=== PATIENT | female | born 1975 | race Caucasian/White ===

== ENCOUNTER 2018-09-29 11:12 | Emergency (ER) | payer BC ==
[2018-09-29] MEDS ORDERED: MORPHINE SULFATE 10 MG/ML INJ IV ONE (12:52)
[2018-09-29] MEDS ORDERED: NORMAL SALINE 1000 ML 1,000 ML IV ONE ×2 (12:52→19:44)
--- NOTE | 2018-09-29 12:53 | ER Document Report ---
ED Medical Screen (RME) - General Chief Complaint: Numbness of Arm Stated Complaint: SORE THROAT Time Seen by Provider: 09/29/18 12:48 TRAVEL OUTSIDE OF THE [place] IN LAST 30 DAYS: No - HPI Notes: 09/29/18 12:52 Patient is a 42-year-old female that presents to the emergency department for chief complaint of facial swelling and difficulty swallowing. Patient had dental abscess surgery performed by oral surgeon yesterday. Last night she started to have increased swelling in her face and states around 2 AM she started to have a hard time swallowing. She feels her throat is swollen. She denies fevers. ROS: GENERAL: Denies fever of chills CV: Denies chest pain PHYSICAL EXAMINATION: GENERAL: Well-appearing, well-nourished and in no acute distress. HEAD: Atraumatic, normocephalic. EYES: Pupils equal round extraocular movements intact, conjunctiva are normal. ENT: Nares patent NECK: Normal range of motion LUNGS: No respiratory distress Musculoskeletal: Normal range of motion NEUROLOGICAL: Normal speech, normal gait. PSYCH: Normal mood, normal affect. MDM: Patient seen and examined for rapid initial assessment. Vital signs reviewed. A comprehensive ED assessment and evaluation of the patient, analysis of test results and completion of the medical decision making process will be conducted by additional ED providers. - Related Data Allergies/Adverse Reactions: morphine [Morphine] Allergy (Verified 09/29/18 12:44) Past Medical History - Social History Chew tobacco use (# tins/day): No Frequency of alcohol use: None Drug Abuse: None - Past Medical History Cardiac Medical History: Denies: Hx Coronary Artery Disease, Hx Pulmonary Embolism Pulmonary Medical History: Reports: Hx Bronchitis, Hx Pneumonia Neurological Medical History: Reports: Hx Migraine Renal/ Medical History: Denies: Hx Peritoneal Dialysis Psychiatric Medical History: Reports: Hx Anxiety, Hx Depression - anxiety Past Surgical History: Reports: Hx Appendectomy, Hx Cholecystectomy, Hx Hysterectomy, Hx Tubal Ligation - Immunizations Immunizations up to date: Yes Hx Diphtheria, Pertussis, Tetanus Vaccination: Yes Physical Exam - Vital signs Vitals: Temp Pulse Resp BP Pulse Ox 98.2 F 88 16 127/81 H 97 09/29/18 11:25 09/29/18 11:25 09/29/18 11:25 09/29/18 11:25 09/29/18 11:25 Course - Vital Signs Vital signs: Temp Pulse Resp BP Pulse Ox 98.2 F 88 16 127/81 H 97 09/29/18 11:25 09/29/18 11:25 09/29/18 11:25 09/29/18 11:25 09/29/18 11:25
[2018-09-29 13:30] LABS: ABSOLUTE EOSINOPHILS # (AUTO) 0.1 10^3/uL (0.0-0.6); ABSOLUTE LYMPHOCYTES (AUTO) 1.2 10^3/uL (0.5-4.7); ABSOLUTE MONOCYTES (AUTO) 0.4 10^3/uL (0.1-1.4); ABSOLUTE NEUT (AUTO) 5.5 10^3/uL (1.7-8.2); BASOPHILS % (AUTO) 0.6 % (0-2); EOSINOPHILS % (AUTO) 1.7 % (0-6); HEMATOCRIT 40.7 % (36.0-47.0); HEMOGLOBIN 13.6 g/dL (12.0-15.5); LYMPHOCYTES % (AUTO) 17.1 % (13-45); MEAN CORPUSCULAR HEMOGLOBIN 29.6 pg (27.0-33.4); MEAN CORPUSCULAR HGB CONC 33.4 g/dL (32.0-36.0); MEAN CORPUSCULAR VOLUME 88 fl (80-97); PLATELET COUNT 275 10^3/uL (150-450); RED CELL DISTRIBUTION WIDTH 13.6 % (11.5-14.0); SEGMENTED NEUTROPHILS % (AUTO) 75.6 % (42-78); TOTAL CELLS COUNTED % (AUTO) 100 %; WHITE BLOOD COUNT 7.2 10^3/uL (4.0-10.5)
[2018-09-29] MEDS ORDERED: KETOROLAC TROMETHAMINE INJ/PF 30 MG/1 ML SDV IV ONE (13:31)
[2018-09-29 13:41] LABS: ANION GAP 7 (5-19); BLOOD UREA NITROGEN 9 mg/dL (7-20); CALCIUM 9.6 mg/dL (8.4-10.2); CARBON DIOXIDE 27 mmol/L (22-30); CHLORIDE 104 mmol/L (98-107); GLUCOSE 104 mg/dL (75-110); POTASSIUM 4.5 mmol/L (3.6-5.0); SODIUM 138.4 mmol/L (137-145)
--- NOTE | 2018-09-29 15:03 | ER Document Report ---
ED General - General Chief Complaint: Numbness of Arm Stated Complaint: SORE THROAT Time Seen by Provider: 09/29/18 12:48 Notes: Patient is a 42-year-old female that presents to the emergency department for chief complaint of facial swelling and dental pain. Patient states she had a tooth extraction yesterday of tooth #21, and was told that it was infected, she was started on oral clindamycin. Around 230 this morning, she experienced more pain, noticed that her face was swelling that got progressively worse over the course of today so she decided to come to the emergency department. She describes her pain as a 7 out of 10 describes as a throbbing and constant pain underneath her jaw on the left side she feels that her throat is swelling up as well. She has been taking Vicodin for the pain, and has been taking the clindamycin as prescribed. She denies any difficulty breathing, but feels that her throat is tight, and has pain underneath her chin as well. She denies noting fevers, chills, night sweats, chest pain, nausea, vomiting or abdominal pain. Past Medical History: Denies chronic medical conditions Past Surgical History: Tubal ligation, appendectomy Social History: Admits to smoking cigarettes, denies alcohol or drug use. Family History: Reviewed and noncontributory for presenting illness Allergies: Reviewed, see documented allergy list. REVIEW OF SYSTEMS: Other than noted above, the 12 point review of systems was reviewed with the patient and were negative, all pertinent findings are included in the HPI. PHYSICAL EXAMINATION: Vital signs reviewed, nursing noted reviewed. GENERAL: Patient appears uncomfortable. HEAD: Atraumatic, normocephalic. EYES: Eyes appear normal, extraocular movements intact, sclera anicteric, conjunctiva are normal. ENT: nares patent, oropharynx clear without exudates. Moist mucous membranes. Samy Dang score 3, tenderness along the submental space, and left subman dibular space, there is prominence and erythema noted in these areas as well. Patient does have poor dentition, noted is the site of her recent dental extraction, no appreciable abscess noted. NECK: Normal range of motion, supple without lymphadenopathy, no stridor LUNGS: Breath sounds clear to auscultation bilaterally and equal. No wheezes rales or rhonchi. HEART: Regular rate and rhythm without murmurs ABDOMEN: Soft, nontender, normoactive bowel sounds. No rebound, guarding, or rigidity. No masses appreciated. EXTREMITIES: Nontender, good range of motion, no pitting or edema. NEUROLOGICAL: No focal neurological deficits. Moves all extremities spontaneously Motor and sensory grossly intact on exam. PSYCH: Normal mood, normal affect. SKIN: Warm, Dry, normal turgor, no rashes or lesions noted on exposed skin TRAVEL OUTSIDE OF THE [place] IN LAST 30 DAYS: No - Related Data Allergies/Adverse Reactions: morphine [Morphine] Allergy (Verified 09/29/18 12:44) Past Medical History - Social History Smoking Status: Current Every Day Smoker Chew tobacco use (# tins/day): No Frequency of alcohol use: None Drug Abuse: None Family History: Reviewed & Not Pertinent Patient has suicidal ideation: No Patient has homicidal ideation: No - Past Medical History Cardiac Medical History: Denies: Hx Coronary Artery Disease, Hx Pulmonary Embolism Pulmonary Medical History: Reports: Hx Bronchitis, Hx Pneumonia Neurological Medical History: Reports: Hx Migraine Renal/ Medical History: Denies: Hx Peritoneal Dialysis Psychiatric Medical History: Reports: Hx Anxiety, Hx Depression - anxiety Past Surgical History: Reports: Hx Appendectomy, Hx Cholecystectomy, Hx Hysterectomy, Hx Tubal Ligation - Immunizations Immunizations up to date: Yes Hx Diphtheria, Pertussis, Tetanus Vaccination: Yes Physical Exam - Vital signs Vitals: Temp Pulse Resp BP Pulse Ox 98.2 F 88 16 127/81 H 97 09/29/18 11:25 09/29/18 11:25 09/29/18 11:25 09/29/18 11:25 09/29/18 11:25 Course - Re-evaluation Re-evalutation: Patient seen and examined vital signs reviewed. Laboratory data and imaging were ordered as appropriate for the patient's presenting symptoms and complaint, with consideration of any critical or life threatening conditions that may be associated with their obtained history and exam as noted above. Patient was treated with IV fluid, IV Toradol was initially given, and started on IV clindamycin 900 mg, and IV Dilaudid was given for pain. 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 I eventually spoke with [facility], after multiple calls, delays to getting a hold of an attending that would accept the patient, eventually talked with Dr. Robert in the emergency department who did accept the patient is in the ED to ED transfer. Results were discussed with the patient at this point after careful consideration I feel that that patient should be transferred to [facility] due to Gomez's angina. This was discussed with the patient that it is in the best interest for their care to be transferred, the risks and benefits of transfer were discussed, including but not limited to clinical deterioration during transport, respiratory distress, and potential for traumatic injuries. Patient agreed with this plan of care. *Note is created using voice recognition software and may contain spelling, syntax or grammatical errors. Laboratory 09/29/18 09/29/18 09/29/18 13:06 13:06 13:06 WBC 7.2 RBC 4.60 Hgb 13.6 Hct 40.7 MCV 88 MCH 29.6 MCHC 33.4 RDW 13.6 Plt Count 275 Seg Neutrophils % 75.6 Lymphocytes % 17.1 Monocytes % 5.0 Eosinophils % 1.7 Basophils % 0.6 Absolute Neutrophils 5.5 Absolute Lymphocytes 1.2 Absolute Monocytes 0.4 Absolute Eosinophils 0.1 Absolute Basophils 0.0 Sodium 138.4 Potassium 4.5 Chloride 104 Carbon Dioxide 27 Anion Gap 7 BUN 9 Creatinine 0.54 Est GFR ( Amer) > 60 Est GFR (Non-Af Amer) > 60 Glucose 104 Lactic Acid 1.0 Calcium 9.[address] 09/29/18 12:52 IMPRESSION: Mild inflammatory changes in the tongue base. No evidence of abscess or airway obstruction. 09/29/18 20:23 - Vital Signs Vital signs: Temp Pulse Resp BP Pulse Ox 98.2 F 88 16 127/81 H 97 09/29/18 11:25 09/29/18 11:25 09/29/18 11:25 09/29/18 11:25 09/29/18 11:25 - Laboratory Result Diagrams: 09/29/18 13:06 09/29/18 13:06 Critical Care Note - Critical Care Note Total time excluding time spent on procedures (mins): 75 Comments: Critical care time 75 minutes exclusive from separate billable procedures for a patient requiring complex medical decision making, and high potential for clinical deterioration. In a patient with pelvic management requiring multiple and frequent repeat exams, for clinical deterioration, and multiple phone calls to facilitate transfer for this patient. Time spent obtaining history from patient or surrogate, discussions with consultants, development of treatment plan with patient or surrogate, evaluation of patient's response to treatment, examination of patient, ordering and performing treatments and interventions, ordering and review of laboratory studies, re-evaluation of patient's condition, ordering and review of radiographic studies and review of old charts Discharge - Discharge Clinical Impression: Ludwigs angina Condition: Stable Disposition: [place]
--- NOTE | 2018-09-29 15:09 | RADIOLOGY REPORT (SQ) ---
EXAM DESCRIPTION: CT SOFT TISSUE NECK WITH COMPLETED DATE/TIME: 09/29/2018 2:44 pm REASON FOR STUDY: ludwigs angina, dental infection COMPARISON: None. TECHNIQUE: Post IV contrasted scanning from skull base through lung apices with review of bone, soft tissue and lung windows. Reconstructed coronal and sagittal MPR images reviewed. All images stored on PACS. All CT scanners at this facility use dose modulation, iterative reconstruction, and/or weight based d osing when appropriate to reduce radiation dose to as low as reasonably achievable (ALARA). [facility]: Dose Right [facility]: CareDose [facility]: Dose Right [facility]: Teradose 4D [facility]: [employer] CONTRAST TYPE AND DOSE: contrast/concentration: Isovue 350.00 mg/ml; Total Contrast Delivered: 75.0 ml; Total Saline Delivered: 55.0 ml RENAL FUNCTION: GFR > 60. RADIATION DOSE: CT Rad equipment meets quality standard of care and radiation dose reduction techniq ues were employed. CTDIvol: 16.7 mGy. DLP: 469 mGy-cm. . LIMITATIONS: None. FINDINGS: SKULL BASE: Intact. MAJOR SALIVARY GLANDS: No solid or cystic masses. No inflammatory changes. LYMPHADENOPATHY: No adenopathy. MUCOSAL MASSES OR ASYMMETRY: Mild edema in the tongue base. No organized fluid collection. Secretio ns in the vallecula. No mucosal masses or asymmetry. LARYNX/CORDS: No abnormal findings. VASCULAR STRUCTURES: The major vessels are patent. LUNG APICES: Clear. BONES: Intact. THYROID: Normal size. No masses. PARANASAL SINUSES: No fluid levels. OTHER: No other significant finding. IMPRESSION: Mild inflammatory changes in the tongue base. No evidence of abscess or airway obstruct ion. TECHNICAL DOCUMENTATION: JOB ID: [id number] Quality ID # [id number]: Final reports with documentation of one or more dose reduction techniques (e.g., Au tomated exposure control, adjustment of the mA and/or kV according to patient size, use of iterative reconstruction technique) 2010 [employer]- All Rights Reserved Reading location - IP/workstation name: [email or web address]
[2018-09-29] MEDS ORDERED: DEXAMETHASONE SOD PHOS INJ 10 MG/1 ML VIAL IV ONE (15:17)
[2018-09-29] MEDS ORDERED: HYDROMORPHONE HCL INJ/PF 2 MG/ML AMPULE IV ONE ×3 (15:17→20:15)
[2018-09-29] MEDS ORDERED: CLINDAMYCIN 900 MG/D5W RTU 900 MG/50 ML RTUPB IV ONE (15:18)
[2018-09-29] MEDS ORDERED: DEXAMETHASONE SOD PHOSPHATE INJ 4 MG/1 ML VIAL IV ONE (20:22)
[2018-09-29 20:58] VITALS: BP 119/75
== END 2018-09-29 21:30 | disposition short-term general hospital (02) ==
LOC: ER 11:12
DX: K12.2 Cellulitis and abscess of mouth (principal); R20.0 Anesthesia of skin; J02.9 Acute pharyngitis, unspecified; R22.0 Localized swelling, mass and lump, head; K08.89 Other specified disorders of teeth and supporting structures; Z79.899 Other long term (current) drug therapy; F17.210 Nicotine dependence, cigarettes, uncomplicated
CPT/HCPCS: 96376; 99291; 99292; 96361; 96375; 96365; 36415; 87040; 85025; 80048; 83605; 70491; J1100 ×2; J1885; J1170; J7030

== ENCOUNTER 2018-11-04 21:19 | Emergency (ER) | payer BC ==
[2018-11-04] MEDS ORDERED: KETOROLAC TROMETHAMINE 60 MG/2 ML SDV IM ONE (22:47)
--- NOTE | 2018-11-04 23:29 | ER Document Report ---
ED General - General Chief Complaint: Arm Pain Stated Complaint: LEFT ARM PAIN,NUMBNESS/TINGLING Time Seen by Provider: 11/04/18 22:18 TRAVEL OUTSIDE OF THE [place] IN LAST 30 DAYS: No - HPI Notes: Patient is a 42-year-old female who presents emergency department for evaluation of pain in her left arm. She states is been there for several months. She points to an area surrounding her elbow. It is worsened by movement. Nothing seems to make it better. She states that over the last 2 weeks she has noticed numbness and. She denies any neck pain. She denies any other focal numbness or tingling. She has not tried anything to feel better. She is not seen a physician as she does not have one. No visual changes. Speaking and swallowing without difficulty. She states she uses her arms a lot at work. - Related Data Allergies/Adverse Reactions: morphine [Morphine] Allergy (Verified 11/04/18 21:30) Past Medical History - General Information source: Patient - Social History Smoking Status: Current Every Day Smoker Family History: Reviewed & Not Pertinent, Malignancy - Lung cancer Patient has suicidal ideation: No Patient has homicidal ideation: No - Past Medical History Cardiac Medical History: Denies: Hx Coronary Artery Disease, Hx Pulmonary Embolism Pulmonary Medical History: Reports: Hx Bronchitis, Hx Pneumonia Neurological Medical History: Reports: Hx Migraine Renal/ Medical History: Denies: Hx Peritoneal Dialysis Psychiatric Medical History: Reports: Hx Anxiety, Hx Depression - anxiety Past Surgical History: Reports: Hx Appendectomy, Hx Cholecystectomy, Hx Hysterectomy, Hx Tubal Ligation - Immunizations Immunizations up to date: Yes Hx Diphtheria, Pertussis, Tetanus Vaccination: Yes Review of Systems - Review of Systems Constitutional: No symptoms reported EENT: No symptoms reported Cardiovascular: No symptoms reported Respiratory: No symptoms reported Gastrointestinal: No symptoms reported Genitourinary: No symptoms reported Musculoskeletal: See HPI Skin: No symptoms reported Neurological/Psychological: See HPI Physical Exam - Vital signs Vitals: Temp Pulse Resp BP Pulse Ox 98.8 F 91 18 135/86 H 97 11/04/18 21:32 11/04/18 21:32 11/04/18 21:32 11/04/18 21:32 11/04/18 21:32 - Notes Notes: Vital signs reviewed, please refer to chart. Patient is normocephalic, atraumatic. Pupils equal round, reactive to light. Neck is supple without meningismus. Heart is regular rate and rhythm. Lungs are clear to auscultation bilaterally. Abdomen is soft, nontender, normoactive bowel sounds throughout. Extremities without cyanosis, clubbing, edema. Peripheral pulses are equal. Skin is warm and dry. Patient is awake, alert, neurological exam is nonfocal. Examination of the left upper extremity yields no obvious deformity. She is tender to palpation over the distal bicep, no other musculature about the left elbow, but none of the bony landmarks. Full range of motion. Intact sensation to the entire left upper extremity. Biceps and brachioradialis reflexes are 2+. Strength is plus 5 out of 5 at the shoulder, elbow, wrist, fingers, thumb. Radial pulses 2+, capillary refill is brisk. Course - Re-evaluation Re-evalutation: 11/04/18 23:27 Patient presents emergency department for evaluation of pain in her left arm. It has been present for several months. She describes a tingling sensation going along with it. She has no other neurological deficits. She has no chest pain, no difficulty breathing. This pain is not exertional. I strongly suspect a musculoskeletal etiology of this pain. She is treated with anti- inflammatories, will send her home with a prescription for the same. She is to return the emergency department with worsening or new concerning symptoms of any sort. - Vital Signs Vital signs: Temp Pulse Resp BP Pulse Ox 98.8 F 91 18 135/86 H 97 11/04/18 21:32 11/04/18 21:32 11/04/18 21:32 11/04/18 21:32 11/04/18 21:32 Discharge - Discharge Clinical Impression: Pain in left elbow Condition: Stable Disposition: HOME, SELF-CARE Additional Instructions: Myofascial Pain Myofascial pain syndrome is chronic or recurring muscle pain. The pain can be aching, cramping, or burning. Sometimes tingling and numbness accompanies the pain. It most often affects the neck, upper back, and shoulders. Pain may radiate into the arms and hands. The pain has no clear-cut explanation. It may begin with an injury, but we don't know why the pain continues. Myofascial pain syndrome may become worse with stress, anxiety, or emotional upset, or after over-use of the muscles. The symptoms will usually go away with time, but sometimes this takes weeks or months. Rest the area when there is a flair of pain. Either cold packs or heat can reduce spasm and pain. Antiinflammatory medication such as ibuprofen can help reduce pain and inflammation. Keep your body in good physical condition by ge tting enough exercise. Stretching exercises of the involved muscles can help. Call the doctor or return if pain becomes severe, or if you develop new symptoms. Anti-Inflammatory Medication You have received a prescription for an antiinflammatory agent. This is an excellent, safe drug for pain control. In addition, it has potent antiinflammatory effects which are beneficial, especially in the treatment of injuries, arthritis, or tendonitis. It's best to take this medicine with food. Persons with ulcer disease or allergy to aspirin should notify their physician of this before taking this drug. Take the medication exactly as prescribed. Don't take additional doses unless instructed to do so by your doctor. If you develop wheezing, shortness o f breath, hives, faintness, stomach pain, vomiting, or dark black stools, return for re-evaluation at once. Prescriptions: Naproxen [Naprosyn 375 Mg Tablet] 375 mg PO BID #20 tablet
[2018-11-04 23:59] VITALS: BP 129/78
--- NOTE | 2018-11-05 20:49 | EKG REPORT ---
SEVERITY:- NORMAL ECG - SINUS RHYTHM : Confirmed by: Malia Rowan MD 05-Nov-2018 20:47:58
== END 2018-11-04 23:40 | disposition home or self-care (01) ==
LOC: ER 21:19
DX: M25.522 Pain in left elbow (principal); R20.0 Anesthesia of skin; R20.2 Paresthesia of skin; Z88.5 Allergy status to narcotic agent; F17.200 Nicotine dependence, unspecified, uncomplicated
CPT/HCPCS: 93005; 99283; 96372; 93010; J1885

== ENCOUNTER 2019-02-02 00:31 | Emergency (ER) | payer BC ==
--- NOTE | 2019-02-02 03:36 | ER Document Report ---
ED Medical Screen (RME) - General Chief Complaint: Sore Throat Stated Complaint: SORE THROAT Time Seen by Provider: 02/02/19 03:29 Notes: Patient is a 43-year-old female who presents to the emergency department with a chief complaint of sore throat, vomiting, coughing, and a migraine. She states that she has had her sore throat for the past week. Patient states that she felt feverish. She states that whenever she tries to eat or drink anything and ends up coming back up. She has been having her cough for 4 days. Exam: S1-S2, erythematous oropharynx I have greeted and performed a rapid initial assessment of this patient. A comprehensive ED assessment and evaluation of the patient, analysis of test results and completion of medical decision making process will be conducted by an additional ED providers. TRAVEL OUTSIDE OF THE [place] IN LAST 30 DAYS: No - Related Data Allergies/Adverse Reactions: morphine [Morphine] Allergy (Verified 11/04/18 21:30) Past Medical History - Past Medical History Cardiac Medical History: Denies: Hx Coronary Artery Disease, Hx Pulmonary Embolism Pulmonary Medical History: Reports: Hx Bronchitis, Hx Pneumonia Neurological Medical History: Reports: Hx Migraine Renal/ Medical History: Denies: Hx Peritoneal Dialysis Psychiatric Medical History: Reports: Hx Anxiety, Hx Depression - anxiety Past Surgical History: Reports: Hx Appendectomy, Hx Cholecystectomy, Hx Hysterectomy, Hx Tubal Ligation - Immunizations Immunizations up to date: Yes Hx Diphtheria, Pertussis, Tetanus Vaccination: Yes Physical Exam - Vital signs Vitals: Temp Pulse Resp BP Pulse Ox 97.7 F 86 24 H 150/84 H 97 02/02/19 00:42 02/02/19 00:42 02/02/19 00:42 02/02/19 00:42 02/02/19 00:42 Course - Vital Signs Vital signs: Temp Pulse Resp BP Pulse Ox 97.7 F 86 24 H 150/84 H 97 02/02/19 00:42 02/02/19 00:42 02/02/19 00:42 02/02/19 00:42 02/02/19 00:42
--- NOTE | 2019-02-02 05:24 | RADIOLOGY REPORT (SQ) ---
EXAM DESCRIPTION: XR CHEST 1 VIEW COMPLETED DATE/TME: 02/02/2019 03:34 CLINICAL HISTORY: 43 years, Female, cough COMPARISON: 08/27/2012 NUMBER OF VIEWS: One TECHNIQUE: AP view of the chest LIMITATIONS: None. FINDINGS: The lungs are clear. The heart is normal in size. There is no pneumothorax or pleural effusion. There is no acute fracture. IMPRESSION: No acute cardiopulmonary abnormality. copyright 2010 [employer]- All Rights Reserved
[2019-02-02] MEDS ORDERED: ONDANSETRON 4 MG TAB.RAPDIS PO ONE (05:37)
[2019-02-02] MEDS ORDERED: BENZONATATE 100 MG CAPSULE PO ONE (05:39)
[2019-02-02 05:42] LABS: ABSOLUTE BASOPHILS # (AUTO) 0.1 10^3/uL (0.0-0.2); ABSOLUTE EOSINOPHILS # (AUTO) 0.3 10^3/uL (0.0-0.6); ABSOLUTE LYMPHOCYTES (AUTO) 2.1 10^3/uL (0.5-4.7); ABSOLUTE MONOCYTES (AUTO) 0.6 10^3/uL (0.1-1.4); ABSOLUTE NEUT (AUTO) 4.7 10^3/uL (1.7-8.2); BASOPHILS % (AUTO) 0.8 % (0-2); EOSINOPHILS % (AUTO) 3.8 % (0-6); HEMATOCRIT 39.4 % (36.0-47.0); HEMOGLOBIN 13.2 g/dL (12.0-15.5); LYMPHOCYTES % (AUTO) 27.5 % (13-45); MEAN CORPUSCULAR HGB CONC 33.4 g/dL (32.0-36.0); MEAN CORPUSCULAR VOLUME 87 fl (80-97); MONOCYTES % (AUTO) 7.4 % (3-13); PLATELET COUNT 293 10^3/uL (150-450); RED BLOOD COUNT 4.54 10^6/uL (3.72-5.28); RED CELL DISTRIBUTION WIDTH 13.3 % (11.5-14.0); SEGMENTED NEUTROPHILS % (AUTO) 60.5 % (42-78); TOTAL CELLS COUNTED % (AUTO) 100 %; WHITE BLOOD COUNT 7.8 10^3/uL (4.0-10.5)
[2019-02-02] MEDS ORDERED: ACETAMINOPHEN 325 MG TABLET PO ONE (05:48)
[2019-02-02 06:22] LABS: ALANINE AMINOTRANSFERASE 27 U/L (9-52); ALBUMIN 3.9 g/dL (3.5-5.0); ALKALINE PHOSPHATASE 87 U/L (38-126); ANION GAP 8 (5-19); ASPARTATE AMINO TRANSFERASE 16 U/L (14-36); BILIRUBIN,DIRECT 0.2 mg/dL (0.0-0.4); BILIRUBIN,TOTAL 0.2 mg/dL (0.2-1.3); BLOOD UREA NITROGEN 13 mg/dL (7-20); CARBON DIOXIDE 25 mmol/L (22-30); CHLORIDE 105 mmol/L (98-107); GLUCOSE 100 mg/dL (75-110); POTASSIUM 4.3 mmol/L (3.6-5.0); SODIUM 138.3 mmol/L (137-145); TOTAL PROTEIN 6.8 g/dL (6.3-8.2)
--- NOTE | 2019-02-02 06:56 | ER Document Report ---
ED General - General Chief Complaint: Sore Throat Stated Complaint: SORE THROAT Time Seen by Provider: 02/02/19 03:29 Primary Care Provider: NEREIDA SALGADO FNP [NURSE PRACTITIONER] - Follow up in 1 week Notes: Patient is a 43-year-old female who presents to the emergency department with a chief complaint of sore throat, vomiting, coughing, and a migraine. She states that she has had her sore throat for the past week. Patient states that she felt feverish. She states that whenever she tries to eat or drink anything and ends up coming back up. She has been having her cough for 4 days. TRAVEL OUTSIDE OF THE [place] IN LAST 30 DAYS: No - Related Data Allergies/Adverse Reactions: morphine [Morphine] Allergy (Verified 11/04/18 21:30) Past Medical History - General Information source: Patient - Social History Smoking Status: Unknown if Ever Smoked Family History: Reviewed & Not Pertinent, Malignancy - Lung cancer - Past Medical History Cardiac Medical History: Denies: Hx Coronary Artery Disease, Hx Pulmonary Embolism Pulmonary Medical History: Reports: Hx Bronchitis, Hx Pneumonia Neurological Medical History: Reports: Hx Migraine Renal/ Medical History: Denies: Hx Peritoneal Dialysis Psychiatric Medical History: Reports: Hx Anxiety, Hx Depression - anxiety Past Surgical History: Reports: Hx Appendectomy, Hx Cholecystectomy, Hx H ysterectomy, Hx Tubal Ligation - Immunizations Immunizations up to date: Yes Hx Diphtheria, Pertussis, Tetanus Vaccination: Yes Review of Systems - Review of Systems Notes: REVIEW OF SYSTEMS: CONSTITUTIONAL : Denies recent illness. Denies recent unintentional weight loss. Denies fever, chills, or sweats. EENT: See HPI CARDIOVASCULAR: Denies chest pain. RESPIRATORY: See HPI GASTROINTESTINAL: Denies nausea, vomiting, and diarrhea. Denies abdominal pain. Denies constipation. GENITOURINARY: Denies difficulty urinating, burning, blood in urine, urgency or frequency. MUSCULOSKELETAL: Denies neck and back pain. Denies joint pain or swelling. SKIN: Denies rash, itchiness, or lesions HEMATOLOGIC : Denies easy bruising or bleeding. LYMPHATIC: Denies swollen, painful, enlarged glands. NEUROLOGICAL: Denies no numbness or tingling denies weakness. Denies headache. Denies altered mental status. Denies alteration in speech. PSYCHIATRIC: Denies stress, anxiety, alteration in sleep patterns, or depression. All other systems reviewed and negative. Physical Exam - Vital signs Vitals: Temp Pulse Resp BP Pulse Ox 97.7 F 86 24 H 150/84 H 97 02/02/19 00:42 02/02/19 00:42 02/02/19 00:42 02/02/19 00:42 02/02/19 00:42 - Notes Notes: PHYSICAL EXAMINATION: GENERAL: Appears well, healthy, well-nourished, no acute distress. HEAD: Normocephalic, atraumatic. EYES: PERRL, conjunctiva normal, all extraocular movements intact, sclera nonicteric ENT: Moist mucous membranes. Erythematous oropharynx. Uvula midline. NECK: Supple, no noticeable swelling, redness, rash. Normal range of motion. LUNGS: Equal breath sounds bilaterally and clear to auscultation. No wheezes rales or rhonchi. CARDIOVASCULAR: S1-S2, regular rate, regular rhythm. Radial pulses 2+, normal. ABDOMEN: Normoactive bowel sounds. Soft, nontender, no guarding, no rebound tenderness, and no masses palpated. EXTREMITIES: Normal strength and range of motion, no pitting or edema. No cyanosis. NEUROLOGICAL: Moves all extremities upon command. Strength 5/5 in all extremities. PSYCH: Normal mood, normal affect. SKIN: Warm, dry. No rash, lesions, ulcerations noted. Normal skin turgor. Course - Re-evaluation Re-evalutation: 02/02/19 06:56 Patient's labs are grossly unremarkable at this time. Her rapid strep is negative. Chest x-ray is normal. I suspect the patient is having a sore throat due to her coughing. She will be sent home with symptom control and throat culture was sent. The patient will follow up with primary care provider in regards to this visit. Very low suspicion for a peritonsillar abscess, as the patient's uvula is midline. Follow-up precautions were given. Verbal discharge instructions were given to the patient. They verbalized understanding. They are stable for discharge. - Vital Signs Vital signs: Temp Pulse Resp BP Pulse Ox 98.0 F 88 16 131/85 H 98 02/02/19 07:06 02/02/19 07:06 02/02/19 07:06 02/02/19 07:06 02/02/19 07:06 - Laboratory Result Diagrams: 02/02/19 05:29 02/02/19 05:29 Discharge - Discharge Clinical Impression: Cough Vomiting Qualifiers: Vomiting type: unspecified Vomiting Intractability: unspecified Nausea presence: without nausea Qualified Code(s): R11.11 - Vomiting without nausea Condition: Stable Disposition: HOME, SELF-CARE Instructions: Sore Throat ([facility]) Additional Instructions: You were seen today in the emergency department for a sore throat, vomiting, and cough. Your chest x-ray and labs are all normal. Your throat culture has been sent and if results are positive, you will be called and placed on antibiotics. You received a dose of steroids here in the emergency department. In the meantime, you are being sent home with Carmelina Rajput medication to help with your cough. Please follow-up with your primary care provider regards to this visit. Prescriptions: Benzonatate [Tessalon Perles 100 mg Capsule] 100 mg PO Q8HP PRN #40 capsule PRN Reason: Ondansetron [Zofran Odt 4 mg Tablet] 1 - 2 tab PO Q4H PRN #15 tab.rapdis PRN Reason: For Nausea/Vomiting Referrals: NEREIDA SALGADO FNP [NURSE PRACTITIONER] - Follow up in 1 week
[2019-02-02] MEDS ORDERED: DEXAMETHASONE SOD PHOS INJ 10 MG/1 ML VIAL IM ONE (07:00)
[2019-02-02 07:07] VITALS: BP 131/85
== END 2019-02-02 07:15 | disposition home or self-care (01) ==
LOC: ER 00:31
DX: R05 Cough (principal); J02.9 Acute pharyngitis, unspecified; G43.909 Migraine, unspecified, not intractable, without status migrainosus; R11.11 Vomiting without nausea; Z88.5 Allergy status to narcotic agent; Z87.19 Personal history of other diseases of the digestive system
CPT/HCPCS: 99283; 96372; 36415; 87070; 87880; 85025; 80053; 71045; S0119; J1100

== ENCOUNTER 2019-06-22 20:32 | Emergency (ER) | payer BC ==
--- NOTE | 2019-06-22 21:12 | ER Document Report ---
HPI - HPI Time Seen by Provider: 06/22/19 20:51 Pain Level: Denies Context: Patient presents emergency department today with a chief complaint of rash. Patient reports she has had intermittent rash that pops up all throughout her body and her scalp for the past few months. Patient reports she has not used anything [id number] for this. Patient denies past medical or surgical history. Patient denies losing or drainage from the rash. - REPRODUCTIVE Reproductive: DENIES: : Past Medical History - General Information source: Patient - Social History Smoking Status: Current Every Day Smoker Frequency of alcohol use: None Drug Abuse: None Lives with: Family Family History: Reviewed & Not Pertinent, Malignancy - Lung cancer Patient has suicidal ideation: No Patient has homicidal ideation: No - Past Medical History Cardiac Medical History: Reports: None Denies: Hx Coronary Artery Disease, Hx Pulmonary Embolism Pulmonary Medical History: Reports: Hx Bronchitis, Hx Pneumonia EENT Medical History: Reports: None Neurological Medical History: Reports: Hx Migraine Endocrine Medical History: Reports: None Renal/ Medical History: Reports: None. Denies: Hx Peritoneal Dialysis Malignancy Medical History: Reports: None GI Medical History: Reports: None Musculoskeletal Medical History: Reports None Skin Medical History: Reports None Psychiatric Medical History: Reports: Hx Anxiety, Hx Depression - anxiety Traumatic Medical History: Reports: None Infectious Medical History: Reports: None Past Surgical History: Reports: Hx Appendectomy, Hx Cholecystectomy, Hx Hysterectomy, Hx Tubal Ligation - Immunizations Immunizations up to date: Yes Hx Diphtheria, Pertussis, Tetanus Vaccination: Yes Vertical Provider Document - CONSTITUTIONAL Agree With Documented VS: Yes Exam Limitations: No Limitations General Appearance: No Apparent Distress - INFECTION CONTROL TRAVEL OUTSIDE OF THE [place] IN LAST 30 DAYS: No - HEENT HEENT: Atraumatic, Normal ENT Exam, Normocephalic, PERRLA - RESPIRATORY Respiratory: Breath Sounds Normal, No Respiratory Distress - CARDIOVASCULAR Cardiovascular: Regular Rate, Regular Rhythm - GI/ABDOMEN Gastrointestinal: Abdomen Soft, Abdomen Non-Tender, Normal Bowel Sounds - NEURO Level of Consciousness: Awake, Alert, Appropriate - DERM Integumentary: Warm, Rash - Scattered circular areas of erythema with white padmini ques noted. These are located on the torso, back, bilateral upper and lower extremities and scalp. Course - Re-evaluation Re-evalutation: 06/23/19 09:09 Patient instructed to use an [id number] hydrocortisone cream to the erythematous plaques to the body. Patient was given instructions to use the shampoo for her scalp only and to follow-up with dermatology as she will require management of the psoriasis. Patient was given a good Rx discount prescription savings card. - Vital Signs Vital signs: Temp Pulse Resp BP Pulse Ox 98.4 F 94 20 142/86 H 99 06/22/19 20:36 06/22/19 20:36 06/22/19 20:36 06/22/19 20:36 06/22/19 20:36 Discharge - Discharge Clinical Impression: Psoriasis Condition: Stable Disposition: HOME, SELF-CARE Additional Instructions: *Today you are seen the emergency department for rash. Your symptoms are consistent with psoriasis. This is very common. Please use an xqim-[id number] hydrocortisone cream to the rash noted throughout your torso and extremities. I have given you a prescription for the rash in your scalp. Please use this as directed. Ultimately do need to follow-up with a biofuels manager so they can further manage her psoriasis and symptoms. Psoriasis You have psoriasis. This is a common disease, but the cause is unknown. Psoriasis often runs in families. The skin blemishes are usually red with a thick, silvery scale. It is most commonly seen over the knees, elbows, and scalp. The nails may become thickened or pitted. Psoriasis is treated with cortisone cream. You can wrap the area with plastic wrap overnight to increase the effectiveness of the cream. Tar preparations may be used on non-hairy areas. Medicated shampoos are often prescribed. Management by a biofuels manager is advised. Prescriptions: Clobetasol/Levocetirizine [Clobetasol 0.05%-Levocetirz 2%] 120 gm TP DAILY #1 bottle Referrals: OZIEL TORRES MD [ACTIVE STAFF] - Follow up as needed
[2019-06-22 21:44] VITALS: BP 126/78
== END 2019-06-22 21:40 | disposition home or self-care (01) ==
LOC: ER 20:32
DX: L40.9 Psoriasis, unspecified (principal); F17.200 Nicotine dependence, unspecified, uncomplicated; Z90.49 Acquired absence of other specified parts of digestive tract; Z90.710 Acquired absence of both cervix and uterus
CPT/HCPCS: 99282

== ENCOUNTER 2019-09-27 19:13 | Emergency (ER) | payer BC ==
[2019-09-27] MEDS ORDERED: NORMAL SALINE 1000 ML 1,000 ML IV ONE ×2 (20:46→23:57)
[2019-09-27] MEDS ORDERED: ONDANSETRON 4 MG TAB.RAPDIS PO ONE (20:46)
[2019-09-27] MEDS ORDERED: ACETAMINOPHEN 325 MG TABLET PO ONE (20:48)
--- NOTE | 2019-09-27 20:48 | ER Document Report ---
ED Medical Screen (RME) - General Chief Complaint: Chest Pain Stated Complaint: CHEST PAIN,FEVER,DIARRHEA,VOMITING,DIZZINESS Time Seen by Provider: 09/27/19 20:46 Notes: 43-year-old female presents for nausea/vomiting/diarrhea and fever since m idnight. Patient states her daughter has similar symptoms. Patient also states abdominal pain. Denies any blood in emesis or in stool. Abdomen soft diffusely tender. I have greeted and performed a rapid initial assessment of this patient. A comprehensive ED assessment and evaluation of the patient, analysis of test results and completion of the medical decision making process with be conducted by additional ED providers. TRAVEL OUTSIDE OF THE [place] IN LAST 30 DAYS: No - Related Data Allergies/Adverse Reactions: morphine [Morphine] Allergy (Verified 06/22/19 20:36) Past Medical History - Past Medical History Cardiac Medical History: Denies: Hx Coronary Artery Disease, Hx Pulmonary Embolism Pulmonary Medical History: Reports: Hx Bronchitis, Hx Pneumonia Neurological Medical History: Reports: Hx Migraine Renal/ Medical History: Denies: Hx Peritoneal Dialysis Psychiatric Medical History: Reports: Hx Anxiety, Hx Depression - anxiety Past Surgical History: Reports: Hx Appendectomy, Hx Cholecystectomy, Hx Hysterectomy, Hx Tubal Ligation - Immunizations Immunizations up to date: Yes Hx Diphtheria, Pertussis, Tetanus Vaccination: Yes Physical Exam - Vital signs Vitals: Temp Pulse Resp BP Pulse Ox 99.6 F 130 H 20 121/85 96 09/27/19 19:22 09/27/19 19:22 09/27/19 19:22 09/27/19 19:22 09/27/19 19:22 Course - Vital Signs Vital signs: Temp Pulse Resp BP Pulse Ox 99.6 F 130 H 20 121/85 96 09/27/19 19:22 09/27/19 19:22 09/27/19 19:22 09/27/19 19:22 09/27/19 19:22
[2019-09-27 22:12] LABS: ABSOLUTE LYMPHOCYTES (AUTO) 1.2 10^3/uL (0.5-4.7); ABSOLUTE MONOCYTES (AUTO) 0.5 10^3/uL (0.1-1.4); ABSOLUTE NEUT (AUTO) 9.4 10^3/uL (1.7-8.2); BASOPHILS % (AUTO) 0.3 % (0-2); EOSINOPHILS % (AUTO) 0.1 % (0-6); HEMATOCRIT 44.3 % (36.0-47.0); LYMPHOCYTES % (AUTO) 10.7 % (13-45); MEAN CORPUSCULAR HEMOGLOBIN 29.6 pg (27.0-33.4); MEAN CORPUSCULAR HGB CONC 33.8 g/dL (32.0-36.0); MEAN CORPUSCULAR VOLUME 88 fl (80-97); MONOCYTES % (AUTO) 4.1 % (3-13); PLATELET COUNT 342 10^3/uL (150-450); RED BLOOD COUNT 5.06 10^6/uL (3.72-5.28); RED CELL DISTRIBUTION WIDTH 13.2 % (11.5-14.0); SEGMENTED NEUTROPHILS % (AUTO) 84.8 % (42-78); TOTAL CELLS COUNTED % (AUTO) 100 %; WHITE BLOOD COUNT 11.1 10^3/uL (4.0-10.5)
[2019-09-27 22:29] LABS: APPEARANCE,URINE CLOUDY; BILIRUBIN,URINE NEGATIVE (NEGATIVE); COLOR,URINE AMBER; GLUCOSE, URINE NEGATIVE (NEGATIVE); KETONES,URINE TRACE mg/dL (NEGATIVE); PROTEIN,URINE 100 mg/dL (NEGATIVE); UROBILINOGEN,URINE NEGATIVE mg/dL (<2.0)
[2019-09-27 22:35] LABS: ALBUMIN 4.6 g/dL (3.5-5.0); ALKALINE PHOSPHATASE 80 U/L (38-126); ANION GAP 15 (5-19); ASPARTATE AMINO TRANSFERASE 23 U/L (14-36); BILIRUBIN,DIRECT 0.3 mg/dL (0.0-0.4); BILIRUBIN,TOTAL 0.6 mg/dL (0.2-1.3); BLOOD UREA NITROGEN 22 mg/dL (7-20); CALCIUM 8.7 mg/dL (8.4-10.2); CARBON DIOXIDE 21 mmol/L (22-30); CHLORIDE 100 mmol/L (98-107); GLUCOSE 123 mg/dL (75-110); POTASSIUM 3.6 mmol/L (3.6-5.0); TOTAL PROTEIN 8.5 g/dL (6.3-8.2)
[2019-09-27] MEDS ORDERED: DICYCLOMINE HCL INJ 20 MG/2 ML AMPULE IM ONE (22:41)
[2019-09-27] MEDS ORDERED: ONDANSETRON HCL INJ/PF 4 MG/2 ML SDV IV ONE (22:41)
--- NOTE | 2019-09-27 22:48 | ER Document Report ---
ED General - General Chief Complaint: Nausea/Vomiting Stated Complaint: CHEST PAIN,FEVER,DIARRHEA,VOMITING,DIZZINESS Time Seen by Provider: 09/27/19 20:46 Primary Care Provider: CONY TRISTAN FNP-C [Primary Care Provider] - Follow up in 3-5 days Notes: 43-year-old female presents for nausea/vomiting/diarrhea, abdominal pain, and fever since midnight. Patient states her daughter has similar symptoms. Patient denies any blood in emesis or in stool. TRAVEL OUTSIDE OF THE [place] IN LAST 30 DAYS: No - Related Data Allergies/Adverse Reactions: morphine [Morphine] Allergy (Verified 06/22/19 20:36) Past Medical History - Social History Smoking Status: Current Every Day Smoker Family History: Reviewed & Not Pertinent, Malignancy - Lung cancer Patient has suicidal ideation: No Patient has homicidal ideation: No - Past Medical History Cardiac Medical History: Denies: Hx Coronary Artery Disease, Hx Pulmonary Embolism Pulmonary Medical History: Reports: Hx Bronchitis, Hx Pneumonia Neurological Medical History: Reports: Hx Migraine Renal/ Medical History: Denies: Hx Peritoneal Dialysis Psychiatric Medical History: Reports: Hx Anxiety, Hx Depression - anxiety Past Surgical History: Reports: Hx Appendectomy, Hx Cholecystectomy, Hx Hysterectomy, Hx Tubal Ligation - Immunizations Immunizations up to date: Yes Hx Diphtheria, Pertussis, Tetanus Vaccination: Yes Review of Systems - Review of Systems Notes: Constitutional: Positive for fever. HENT: Negative for sore throat. Eyes: Negative for visual changes. Cardiovascular: Negative for chest pain. Respiratory: Negative for shortness of breath. Gastrointestinal: Positive for abdominal pain, vomiting or diarrhea. Genitourinary: Negative for dysuria. Musculoskeletal: Negative for back pain. Skin: Negative for rash. Neurological: Negative for headaches, weakness or numbness. 10 point ROS negative except as marked above and in HPI. Physical Exam - Vital signs Vitals: Temp Pulse Resp BP Pulse Ox 99.6 F 130 H 20 121/85 96 09/27/19 19:22 09/27/19 19:22 09/27/19 19:22 09/27/19 19:22 09/27/19 19:22 - Notes Notes: GENERAL: Well-appearing, well-nourished and in no acute distress. HEAD: Atraumatic, normocephalic. EYES: Extraocular movements intact, sclera anicteric, conjunctiva are normal. NECK: Normal range of motion, supple without lymphadenopathy or JVD. LUNGS: Breath sounds clear to auscultation bilaterally and equal. No wheezes rales or rhonchi. HEART: Tachycardia without murmurs, rubs or gallops. ABDOMEN: Soft, diffusely tender. No guarding, no rebound. No masses appreciated. EXTREMITIES: Normal range of motion, no pitting or edema. No clubbing or cyanosis. NEUROLOGICAL: Cranial nerves II through XII grossly intact. Normal speech, normal gait. PSYCH: Normal mood, normal affect. SKIN: Warm, Dry, normal turgor, no rashes or lesions noted. Course - Re-evaluation Re-evalutation: 09/27/19 nontoxic, well-appearing 43-year-old female presents with generalized abdominal pain, nausea, vomiting, diarrhea, and fever. Patient states symptoms started at midnight and her daughter has similar symptoms. Abdomen soft diffusely tender. No guarding or rebound. Nonsurgical abdomen. PE is otherwise unremarkable. Patient is tachycardic. Lab work initiated and IV fluids, Bentyl, and Zofran were ordered. 09/27/19 23:04 Labwork significant for WBC 11.1, Na 136.1, BUN 22, protein 8.5. UA shows protein and trace ketones. Trop negative. 09/28/19 00:03 Pt is having nausea again. Reglan ordered. 09/28/19 00:13 Per RN, pt is now having abdominal pain. Toradol ordered. 09/28/19 03:01 PO challenge passed. Pt states Reglan and Bentyl seemed to help the best. States wants to go home. Also requesting something for diarrhea. Script for imodium, Reglan, Bentyl, and suppository Phenergan given. Strict return precautions given. Patient given close follow-up with PCP. Patient voices understanding and agrees with plan of care. - Vital Signs Vital signs: Temp Pulse Resp BP Pulse Ox 97.9 F 80 15 104/64 98 09/28/19 00:46 09/28/19 00:46 09/28/19 00:46 09/28/19 00:46 09/28/19 00:46 - Laboratory Result Diagrams: 09/27/19 21:40 09/27/19 21:40 Laboratory results interpreted by me: 09/27/19 09/27/19 09/27/19 21:40 21:40 21:40 WBC 11.1 H Lymph % (Auto) 10.7 L Absolute Neuts (auto) 9.4 H Seg Neutrophils % 84.8 H Sodium 136.1 L Carbon Dioxide 21 L BUN 22 H Glucose 123 H Total Protein 8.5 H Lipase 18.6 L Urine Protein 100 H Urine Ketones TRACE H Discharge - Discharge Clinical Impression: Nausea, vomiting, and diarrhea Abdominal pain Qualifiers: Abdominal location: generalized Qualified Code(s): R10.84 - Generalized abdominal pain Condition: Stable Disposition: HOME, SELF-CARE Instructions: Abdominal Pain ([facility]), Prescribed Antidiarrhea Medications ([facility]), Antinausea Medication ([facility]) Additional Instructions: Please take Reglan and Bentyl as prescribed. Please take Imodium as needed for diarrhea. Please follow-up with your primary care doctor or 1 of the clinics listed in 3 to 5 days. Return immediately to ER if you start having any worsening symptoms, including fever, worsening abdominal pain, vomiting not controlled by medication, chest pain, shortness of breath, vomiting/coughing up blood, blood in stool, or any other symptoms that are concerning to you. Prescriptions: Loperamide HCl [Imodium 2 mg Capsule] 2 mg PO Q4HP PRN #21 cap PRN Reason: Dicyclomine HCl [Bentyl 20 mg Tablet] 20 mg PO QID #40 tablet Promethazine HCl [Phenergan 25 mg Supp.rect] 1 supp SD Q6H #12 supp.rect Metoclopramide HCl [Reglan 10 mg Tablet] 1 - 2 tab PO ASDIR PRN #25 tablet PRN Reason: Forms: Return to Work Referrals: CONY TRISTAN, [employer]CH[employer]-C [Primary Care Provider] - Follow up in 3-5 days
[2019-09-28] MEDS ORDERED: METOCLOPRAMIDE HCL INJ/PF 10 MG/2 ML SDV IV ONE (00:03)
[2019-09-28] MEDS ORDERED: KETOROLAC TROMETHAMINE INJ/PF 30 MG/1 ML SDV IV ONE (00:13)
[2019-09-28] MEDS ORDERED: ONDANSETRON ODT 4 MG TAB (6 TAB/ER DISP) PO PRN (03:05)
[2019-09-28 04:08] VITALS: BP 105/73
--- NOTE | 2019-09-28 18:15 | EKG REPORT ---
SEVERITY:- BORDERLINE ECG - SINUS TACHYCARDIA PROBABLE LEFT ATRIAL ABNORMALITY : Confirmed by: Yamil English 28-Sep-2019 18:14:43
== END 2019-09-28 04:07 | disposition home or self-care (01) ==
LOC: ER 19:13
DX: R11.2 Nausea with vomiting, unspecified (principal); R19.7 Diarrhea, unspecified; R10.84 Generalized abdominal pain; R10.817 Generalized abdominal tenderness; R50.9 Fever, unspecified; F17.200 Nicotine dependence, unspecified, uncomplicated; Z88.6 Allergy status to analgesic agent; Z88.5 Allergy status to narcotic agent
CPT/HCPCS: 93005; 99284; 96372; 96361; 96374; 96375; 36415; 83690; 84703; 85025; 80053; 81001; 84484; 93010; J0500; S0119; J1885; J2765; J2405; J7030 ×2

== ENCOUNTER 2019-10-05 16:31 | Emergency (ER) | payer BC ==
[2019-10-05] MEDS ORDERED: ASPIRIN 81 MG TABLET, CHEWABLE PO ONE (16:33)
--- NOTE | 2019-10-05 16:37 | ER Document Report ---
ED Medical Screen (RME) - General Chief Complaint: Chest Pain Stated Complaint: CHEST PAIN Time Seen by Provider: 10/05/19 16:32 Primary Care Provider: CONY TRISTAN FNP-C [Primary Care Provider] - Follow up as needed Mode of Arrival: Ambulatory Information source: Patient Notes: 43-year-old female presented to ED for complaint of chest pain shortness of breath with pain radiating down the left arm. She states the chest pain just started yesterday but she did have the flu last week. She states she has been short of breath since last week when she had the flu. She is alert oriented respirations regular nonlabored speaking in full sentences. She states she has not had any fever since last week when she had the flu. I have greeted and performed a rapid initial assessment of this patient. A comprehensive ED assessment and evaluation of the patient, analysis of test results and completion of medical decision making process will be conducted by an additional ED providers. TRAVEL OUTSIDE OF THE [place] IN LAST 30 DAYS: No - Related Data Allergies/Adverse Reactions: morphine [Morphine] Allergy (Verified 06/22/19 20:36) Past Medical History - Past Medical History Cardiac Medical History: Denies: Hx Coronary Artery Disease, Hx Pulmonary Embolism Pulmonary Medical History: Reports: Hx Bronchitis, Hx Pneumonia Neurological Medical History: Reports: Hx Migraine Renal/ Medical History: Denies: Hx Peritoneal Dialysis Psychiatric Medical History: Reports: Hx Anxiety, Hx Depression - anxiety Past Surgical History: Reports: Hx Appendectomy, Hx Cholecystectomy, Hx Hysterectomy, Hx Tubal Ligation - Immunizations Immunizations up to date: Yes Hx Diphtheria, Pertussis, Tetanus Vaccination: Yes Doctor's Discharge - Discharge Referrals: CONY TRISTAN FNP-C [Primary Care Provider] - Follow up as needed
[2019-10-05 17:15] LABS: ABSOLUTE BASOPHILS # (AUTO) 0.1 10^3/uL (0.0-0.2); ABSOLUTE EOSINOPHILS # (AUTO) 0.2 10^3/uL (0.0-0.6); ABSOLUTE LYMPHOCYTES (AUTO) 1.9 10^3/uL (0.5-4.7); ABSOLUTE MONOCYTES (AUTO) 0.4 10^3/uL (0.1-1.4); ABSOLUTE NEUT (AUTO) 5.7 10^3/uL (1.7-8.2); HEMATOCRIT 40.2 % (36.0-47.0); LYMPHOCYTES % (AUTO) 22.9 % (13-45); MEAN CORPUSCULAR HEMOGLOBIN 30.7 pg (27.0-33.4); MEAN CORPUSCULAR HGB CONC 34.9 g/dL (32.0-36.0); MEAN CORPUSCULAR VOLUME 88 fl (80-97); MONOCYTES % (AUTO) 5.1 % (3-13); PLATELET COUNT 390 10^3/uL (150-450); RED BLOOD COUNT 4.57 10^6/uL (3.72-5.28); RED CELL DISTRIBUTION WIDTH 13.1 % (11.5-14.0); TOTAL CELLS COUNTED % (AUTO) 100 %; WHITE BLOOD COUNT 8.2 10^3/uL (4.0-10.5)
--- NOTE | 2019-10-05 17:18 | RADIOLOGY REPORT (SQ) ---
EXAM DESCRIPTION: CHEST 2 VIEWS COMPLETED DATE/TIME: 10/05/2019 5:04 pm REASON FOR STUDY: chest pain COMPARISON: 02/02/2019 EXAM PARAMETERS: NUMBER OF VIEWS: two views TECHNIQUE: Digital Frontal and Lateral radiographic views of the chest acquired. RADIATION DOSE: NA LIMITATIONS: none FINDINGS: LUNGS AND PLEURA: No opacities, masses or pneumothorax. No pleural effusion. MEDIASTINUM AND HILAR STRUCTURES: No masses or contour abnormalities. HEART AND VASCULAR STRUCTURES: Heart normal size. No evidence for failure. BONES: No acute findings. HARDWARE: None in the chest. OTHER: No other significant finding. IMPRESSION: 1. No significant interval changes since the prior examination dated 02/02/2019. No acu te findings. TECHNICAL DOCUMENTATION: JOB ID: [id number] 2010 [employer]- All Rights Reserved Reading location - IP/workstation name: [email or web address]
[2019-10-05 17:34] LABS: ALBUMIN 4.3 g/dL (3.5-5.0); ALKALINE PHOSPHATASE 88 U/L (38-126); ANION GAP 11 (5-19); ASPARTATE AMINO TRANSFERASE 33 U/L (14-36); BILIRUBIN,DIRECT 0.2 mg/dL (0.0-0.4); BILIRUBIN,TOTAL 0.3 mg/dL (0.2-1.3); BLOOD UREA NITROGEN 16 mg/dL (7-20); CALCIUM 9.8 mg/dL (8.4-10.2); CARBON DIOXIDE 27 mmol/L (22-30); CHLORIDE 102 mmol/L (98-107); GLUCOSE 106 mg/dL (75-110); POTASSIUM 4.6 mmol/L (3.6-5.0); TOTAL PROTEIN 7.6 g/dL (6.3-8.2)
--- NOTE | 2019-10-05 18:26 | EKG REPORT ---
SEVERITY:- NORMAL ECG - SINUS RHYTHM : Confirmed by: Malia Rowan MD 05-Oct-2019 18:25:36
--- NOTE | 2019-10-05 19:00 | ER Document Report ---
ED General - General Chief Complaint: Chest Pain Stated Complaint: CHEST PAIN Time Seen by Provider: 10/05/19 16:32 Primary Care Provider: CONY TRISTAN FNP-C [Primary Care Provider] - Follow up as needed Mode of Arrival: Ambulatory TRAVEL OUTSIDE OF THE [place] IN LAST 30 DAYS: No - HPI Notes: Patient is a 43-year-old female presents emergency department for evaluation of chest pain. She states is been present for at least 3 days. It is constant. Is there when she wakes, there she when she goes to sleep. She describes it as a "discomfort" and tightness. She states that her left arm feels numb with it as well. She denies any associated nausea, diaphoresis, near syncope. She does admit that she had "the flu" last week where she had nausea, vomiting, diarrhea. She had minimal cough. She did have a fever at that point. No fevers. She is not coughing. - Related Data Allergies/Adverse Reactions: morphine [Morphine] Allergy (Verified 06/22/19 20:36) Past Medical History - General Information source: Patient - Social History Smoking Status: Former Smoker Chew tobacco use (# tins/day): No Frequency of alcohol use: Rare Drug Abuse: None Family History: Reviewed & Not Pertinent, Malignancy - Lung cancer Patient has suicidal ideation: No Patient has homicidal ideation: No - Past Medical History Cardiac Medical History: Denies: Hx Coronary Artery Disease, Hx Pulmonary Embolism Pulmonary Medical History: Reports: Hx Bronchitis, Hx Pneumonia Neurological Medical History: Reports: Hx Migraine Renal/ Medical History: Denies: Hx Peritoneal Dialysis Psychiatric Medical History: Reports: Hx Anxiety, Hx Depression - anxiety Past Surgical History: Reports: Hx Appendectomy, Hx Cholecystectomy, Hx Hysterectomy, Hx Tubal Ligation - Immunizations Immunizations up to date: Yes Hx Diphtheria, Pertussis, Tetanus Vaccination: Yes Review of Systems - Review of Systems Cardiovascular: See HPI -: Yes All other systems reviewed and negative Physical Exam - Vital signs Vitals: Temp Pulse Resp BP Pulse Ox 98.6 F 88 14 136/80 H 99 10/05/19 16:49 10/05/19 16:49 10/05/19 16:49 10/05/19 16:49 10/05/19 16:49 - Notes Notes: Vital signs reviewed, please refer to chart. Head is normocephalic, atraumatic. Pupils equal round, reactive to light. Neck is supple without meningismus. Heart is regular rate and rhythm. Lungs are clear to auscultation bilaterally. Abdomen is soft, nontender, normoactive bowel sounds throughout. Extremities without cyanosis, clubbing. Posterior calves are nontender. Peripheral pulses are equal to all 4 extremities. Skin is warm and dry. Patient is awake, alert, neurological exam is nonfocal. Course - Re-evaluation Re-evalutation: 10/05/19 19:33 Patient presents to the emergency department for evaluation. She said several days of chest pain. Is not exertional. It is there when she wakes, there when she goes to sleep. She has minimal associated symptoms. She is neurovascularly intact to the left upper extremity. She is overweight, but no other acute risk factors at this time. Her EKG is unremarkable, her cardiac enzymes are negative. Given the duration of her pain, one negative troponin is certainly reasonable for rule out of ACS. I explained to the patient she needs follow-up with primary care, she voiced understanding. She is return to the ED with worsening or new concerning symptoms of any sort. - Vital Signs Vital signs: Temp Pulse Resp BP Pulse Ox 98.6 F 88 14 136/80 H 100 10/05/19 16:49 10/05/19 16:49 10/05/19 16:49 10/05/19 16:49 10/05/19 17:51 - Laboratory Result Diagrams: 10/05/19 16:56 10/05/19 16:56 Laboratory results interpreted by me: 10/05/19 16:56 Creatinine 0.49 L ALT 70 H - Diagnostic Test Radiology reviewed: Reports reviewed Radiology results interpreted by me: 10/05/19 19:34 Chest X-Ray 10/05/19 16:33 IMPRESSION: 1. No significant interval changes since the prior examination dated 02/02/2019. No acute findings. - EKG Interpretation by Me Additional EKG results interpreted by me: 10/05/19 19:34 Sinus mechanism with rate of 83 bpm. Normal axis and intervals. No acute ST changes concerning for ischemia or infarction. Discharge - Discharge Clinical Impression: Chest pain Qualifiers: Chest pain type: unspecified Qualified Code(s): R07.9 - Chest pain, unspecified Condition: Stable Disposition: HOME, SELF-CARE Instructions: Chest Pain of Unclear Cause ([facility]) Additional Instructions: No clear cause was found for your symptoms today. Please follow-up with primary care next week. Return the emergency department for worsening or new concerning symptoms of any sort. Forms: Return to Work Referrals: CONY TRISTAN, NÉSTOR [Primary Care Provider] - Follow up as needed
[2019-10-05 19:44] VITALS: BP 102/54
== END 2019-10-05 19:44 | disposition home or self-care (01) ==
LOC: ER 16:31
DX: R07.9 Chest pain, unspecified (principal); R20.0 Anesthesia of skin; R50.9 Fever, unspecified; Z87.891 Personal history of nicotine dependence
CPT/HCPCS: 36415; 71046; 80053; 83735; 84484; 85025; 93005; 93010; 99285

== ENCOUNTER 2020-07-21 19:25 | Emergency (ER) | payer BC ==
--- NOTE | 2020-07-21 20:38 | ER Document Report ---
ED Respiratory Problem - General Chief Complaint: Cough Stated Complaint: COUGH/CONGESTION/FEVER Time Seen by Provider: 07/21/20 20:31 Primary Care Provider: CONY TRISTAN FNP-C [Primary Care Provider] - Follow up as needed Mode of Arrival: Ambulatory Information source: Patient Notes: 44-year-old female presents to ED for complaint of cough congestion fevers body aches and change in sense of smell but she does not notice congestion or something else. She is alert oriented respirations regular nonlabored at this time. We will get the Covid flu strep and chest x-ray completed while she is here. We will reevaluate with the results of this test. Constitutional: States she has felt like she had a fever but she never actually took her temperature HENT: Nasal congestion nasal drip Eyes: Negative for visual changes. Cardiovascular: Negative for chest pain. Respiratory: Cough and congestion Gastrointestinal: Negative for abdominal pain, vomiting or diarrhea. Genitourinary: Negative for dysuria. Musculoskeletal: Negative for back pain. Skin: Negative for rash. Neurological: Negative for headaches, weakness or numbness. 10 point ROS negative except as marked above and in HPI. VITAL SIGNS: Within normal limits. GENERAL: No acute distress, non-toxic appearance. HEAD: Normal with no signs of head trauma. EYES: PERRLA, EOMI, conjunctiva normal, no discharge. EARS: Hearing grossly intact. NOSE: Nasal turbinates with nasal congestion THROAT: Postnasal drip NECK: Normal range of motion, no tenderness, supple, no lymphadenopathy, No adenopathy, no JVD. CHEST: Clear breath sounds bilaterally. No wheezes, rales, or rhonchi. Nonproductive cough CARDIAC: Regular rate and rhythm. S1 and S2, without murmurs, gallops, or rubs. VASCULAR: No Edema. Peripheral pulses normal and equal in all extremities. ABDOMEN: Normal and soft with no tenderness, no masses or pulsatile masses. GASTROINTESTINAL: Bowel sounds normal GENITOURINARY: Normal, No tenderness LYMPATHTIC: No lymphadenopathy noted. MUSCULOSKELETAL: Good range of motion of all major joints. Extremities without clubbing, cyanosis or edema. NEUROLOGICAL: Alert and oriented x 3. No focal sensory or strength deficits. Speech normal. Follows commands appropriately. PSYCHIATRIC: Normal Affect, judgement and mood. SKIN: Normal appearance with no rashes or lesions. TRAVEL OUTSIDE OF THE [place] IN LAST 30 DAYS: No - HPI Patient complains to provider of: Cough Onset: Yesterday Duration: Continuous Initiating Event: URI, Other - Uses vape Quality of pain: Achy - Body aches all over Severity: Moderate Pain Level: 4 Context: Smoker Cough: Nonproductive Sputum amount: None Associated symptoms: Congestion, Cough, Fever, PND, Runny nose, Sinus pain/pressure, Other - Body aches Similar symptoms previously: Yes Recently seen / treated by doctor: No - Related Data Allergies/Adverse Reactions: morphine [Morphine] Allergy (Verified 07/22/20 00:55) Past Medical History - General Information source: Patient - Social History Smoking Status: Current Every Day Smoker - Uses vape Frequency of alcohol use: None Drug Abuse: None Occupation: [employer] Lives with: Family Family History: Reviewed & Not Pertinent, Malignancy - Lung cancer Patient has suicidal ideation: No Patient has homicidal ideation: No - Past Medical History Cardiac Medical History: Reports: Hx Hypertension Pulmonary Medical History: Reports: Hx Bronchitis, Hx Pneumonia EENT Medical History: Reports: None Neurological Medical History: Reports: Hx Migraine Endocrine Medical History: Reports: None Renal/ Medical History: Reports: None Malignancy Medical History: Reports: None GI Medical History: Reports: None Musculoskeletal Medical History: Reports Hx Musculoskeletal Deformity, Reports Hx Musculoskeletal Trauma Psychiatric Medical History: Reports: Hx Anxiety, Hx Depression Traumatic Medical History: Reports: Hx Fractures - Ankle Infectious Medical History: Reports: None Past Surgical History: Reports: Hx Appendectomy, Hx Cholecystectomy, Hx Hysterectomy, Hx Tubal Ligation - Immunizations Immunizations up to date: No Hx Diphtheria, Pertussis, Tetanus Vaccination: No Physical Exam - Vital signs Vitals: Temp Pulse BP Pulse Ox 98.5 F 102 H 138/95 H 100 07/21/20 20:07 07/21/20 20:07 07/21/20 20:07 07/21/20 20:07 Course - Re-evaluation Re-evalutation: 07/22/20 08:52 Patient did receive 2 nebulizer treatments and 60 mg of prednisone during her visit today for her asthma exacerbation. She was discharged home with prescription for 60 mg x 5 days. She was instructed to please follow-up with her primary care promptly and to get to the [facility] as recommended as soon as possible. She states she does have medicine for her nebulizer treatment at home but usually when she gets like that she needs the steroids. Patient stated her breathing was much better and she felt comfortable going home after the 2 treatments and steroids. - Vital Signs Vital signs: Temp Pulse Resp BP Pulse Ox 97.5 F 106 H 16 133/87 H 98 07/22/20 05:21 07/22/20 05:21 07/22/20 05:21 07/22/20 05:21 07/22/20 05:21 - Laboratory Results Critical Laboratory Results Reviewed: No Critical Results - Radiology Results Critical Radiology Results Reviewed: No Critical Results Discharge - Discharge Clinical Impression: Viral syndrome, Person under investigation for COVID-19 Condition: Stable Disposition: HOME, SELF-CARE Instructions: COVID-19 Guidance for Persons Under Investigation Additional Instructions: Viral Syndrome The physician has diagnosed a viral infection. Viruses not only cause "colds," but can cause many different symptoms including generalized aching, fever, headache, cough, diarrhea, nausea, vomiting, and fatigue. The treatment, for the most part, is simply relief of symptoms. This means that antibiotics are usually not given. Rest, fluids, pain medications and, occasionally, medication for the specific symptoms that are most bothersome will be prescribed. Use good handwashing to avoid passing the virus to others. Shared toys should be cleaned with disinfectant. Clean the toilets, sinks, and counter surfaces in bathrooms. Launder clothing in hot water. Contact the physician if you develop any new or unusual symptoms such as severe headache, stiff neck, high fever, chest pain, productive cough, or shortness of breath. You should be rechecked if you don't see marked improvement within seven to 10 days. SORE THROAT: Sore throats may be caused by viruses, bacteria, or fungi. Most are due to a virus, and must get better on their own. Bacterial sore throats, particularly those due to "strep," need treatment with antibiotics. If an antibiotic is prescribed, be sure to take the medication for a full 10 days. Failure to take the antibiotic can result in complications such as rheumatic fever. Sometimes, an injection of antibiotics is given instead of pills or liquid. This single "shot" is equal in effectiveness to the oral medication. To relieve symptoms, take acetaminophen for pain. Sip clear liquids frequently, or eat popsicles or ice chips. Anesthetic sprays or lozenges may help. Make sure the air in the room is not too dry. Avoid using decongestants or antihistamines. Call the doctor if there is no improvement in two days, or if you have difficulty breathing, increasing throat pain, high fever, rash, or frequent vomiting. Ibuprofen Ibuprofen is an excellent, safe drug for pain control. In addition, it has potent antiinflammatory effects which are beneficial, especially in the treatment of injuries, arthritis, or tendonitis. It's best to take ibuprofen with food. Persons with ulcer disease or allergy to aspirin should notify their physician of this before taking ibuprofen. Take the medication exactly as prescribed. Don't take additional doses unless instructed to do so by your doctor. If you develop wheezing, shortness of breath, hives, faintness, stomach pain, vomiting, or dark black stools, ret urn for re-evaluation at once. You have been recommended treatment with Claritin 10 mg. TYou could also use Flonase which is [id number] 1 spray each nostril twice a day. You could also use salt soda solution gargles. These will help to remove the drainage from the back your throat. Chloraseptic spray was [id number] that will also help with your sore throat. Salt and soda solution gargle 1 quart of water 1 tablespoon of salt 1 teaspoon of baking soda Mixed 3 ingredients together and boil for 1 minute Placed in a covered quart jar Use 1/2 ounce of cold solution to gargle 3 times a day Patient was provided with discharge information including: As a person under investigation for Covid 19, the [place] department of Health and Human Services, division of public health advises you to adhere to the following guidance until your test results are reported to you. If your test result is positive, you will receive additional information from your provider and your local health department at that time. Remain at home until you are cleared by the health provider or public health authorities. Keep a log of visitors to your home, notify any visitors to your home of your isolation status. If you plan to move to a new address or leave the county, notify the local health department in your County. Call your doctor or seek care if you have an urgent medical need. Before seeking medical care, call ahead to get instructions from the provider before arriving at the medical office clinic or hospital. Notify them that you are being tested for the virus that causes Covid 19 so that arrangements can be made, as necessary, to prevent transmission to others in the healthcare setting. Next, notify the local health department in your county. If a medical emergency arises and you need to call 911, inform the first responders that you are being tested for the virus that causes Covid 19. Next, notify the local health department in your county. Forms: Elevated Blood Pressure, Smoking Cessation Education Referrals: CONY TRISTAN FNP-C [Primary Care Provider] - Follow up as needed
--- NOTE | 2020-07-21 21:28 | RADIOLOGY REPORT (SQ) ---
EXAM DESCRIPTION: CHEST SINGLE VIEW CLINICAL HISTORY: 44 years Female, cough congestion COMPARISON: Single view of the chest February 02, 2019 FINDINGS: Lungs: Lungs are clear. No pneumonia or edema. No pneumothorax or pleural effusion. Mediastinum: Cardiac and mediastinal silhouette are normal. Bones: Osseous structures are normal. Clips are present in the right upper quadrant consistent with previous cholecystectomy. IMPRESSION: No acute process. No significant interval change.
[2020-07-22 02:53] LABS: A TYPE INFLUENZA AG NEGATIVE (NEGATIVE); B INFLUENZA AG NEGATIVE (NEGATIVE)
[2020-07-22] MEDS ORDERED: IBUPROFEN 800 MG TABLET PO ONE (05:20)
[2020-07-22 05:22] VITALS: BP 133/87
== END 2020-07-22 05:29 | disposition home or self-care (01) ==
LOC: ER 19:25
DX: U07.1 COVID-19 (principal); R05 Cough; R09.81 Nasal congestion; R50.9 Fever, unspecified; M79.10 Myalgia, unspecified site; R09.82 Postnasal drip; R09.89 Other specified symptoms and signs involving the circulatory and respiratory systems; F17.290 Nicotine dependence, other tobacco product, uncomplicated; I10 Essential (primary) hypertension
CPT/HCPCS: 99284; 87070; 87880; 87804; 71045; U0003; C9803; 87635